=== PATIENT | female | born 1950 | race Hispanic/Latino ===

== ENCOUNTER 2017-05-19 13:22 | Emergency (ER) | payer MEDICARE ==
[2017-05-19 14:18] LABS: OCCULT BLOOD STOOL SINGLE ONLY NEGATIVE (NEGATIVE)
[2017-05-19] MEDS ORDERED: SODIUM CHLORIDE 0.9% 1000ML 1,000 ML IV ONE (14:43)
[2017-05-19 14:57] LABS: BASOPHILS % (AUTO) 0.6 % (0.0-5.0); EOSINOPHILS % (AUTO) 2.3 % (0.0-8.0); HEMATOCRIT 42.7 % (36-48); LYMPHOCYTES % (AUTO) 20.1 % (21.0-51.0); MEAN CORPUSCULAR HEMOGLOBIN 32.4 pg (27.0-33.0); MEAN CORPUSCULAR HGB CONC 36.1 g/dL (32.0-36.0); MEAN CORPUSCULAR VOLUME 89.9 fL (79-99); MONOCYTES % (AUTO) 15.9 % (3.0-13.0); NEUTROPHILS % (AUTO) 61.1 % (40.0-77.0); PLATELET COUNT (AUTO) 227 K/uL (130-400); RED BLOOD CELL COUNT(AUTO) 4.75 MIL/uL (4.00-5.50); RED CELL DISTRIBUTION WIDTH 12.8 % (11.0-15.5); WHITE BLOOD COUNT (AUTO) 5.4 K/uL (4.8-10.8)
[2017-05-19 15:10] LABS: CREATININE 0.8 mg/dL (0.5-1.5); POTASSIUM 4.2 mmol/L (3.5-5.1)
[2017-05-19 15:15] LABS: ALBUMIN 3.8 g/dL (3.5-5.0); BILIRUBIN,TOTAL 1.2 mg/dL (0.2-1.0); TOTAL PROTEIN, SERUM 7.8 g/dL (6.0-8.3)
[2017-05-19] MEDS ORDERED: ONDANSETRON HCL 4 MG/2 ML VIAL ONE (15:16)
[2017-05-19] MEDS ORDERED: ACETAMINOPHEN EXTRA STRENGTH 500 MG TABLET ONE (15:34)
[2017-05-19] MEDS ORDERED: FAMOTIDINE/PF 20 MG/2 ML VIAL IV ONE (15:35)
== END 2017-05-19 17:34 | disposition home or self-care (01) ==
LOC: EDH 13:22
DX: A08.4 Viral intestinal infection, unspecified (principal); E86.0 Dehydration; I10 Essential (primary) hypertension; K21.9 Gastro-esophageal reflux disease without esophagitis
CPT/HCPCS: 36415; 80053; 82270; 85025; 87046; 87177; 87205; 87324; 96361; 96374; 96375; 99284; J2405; J3490; J7030

== ENCOUNTER 2019-02-27 05:37 | Day surgery (SDC) | payer MEDICARE, OTHER ==
[~2019-02-27] VITALS: Ht 154.9 cm; Wt 76.7 kg
[~2019-02-27 05:37] MED LIST: AMLO5TAB9 PO; CYAN250014 PO; FAMO40TA75 PO; FLUT16H NASAL; LACT1CAP72 PO; LEVO100T12 PO; MV-M1TAB20 PO; NEBI10TA PO; PANT40TA25 PO
[2019-02-27] MEDS ORDERED: SODIUM CHLORIDE 0.9% 1000ML 1,000 ML IV ONE (05:47)
[2019-02-27 06:25] VITALS: BP 153/55
[2019-02-27] MEDS ORDERED: PROPOFOL 10 MG/ML 20ML VIAL IV ONE (06:40)
[2019-02-27] MEDS ORDERED: LIDOCAINE HCL 1% 20 ML VIAL ONE (06:41)
[2019-02-27 06:50] VITALS: BP 121/39
[2019-02-27 06:55] VITALS: BP 120/44
[2019-02-27 07:00] VITALS: BP 116/45
[2019-02-27 07:05] VITALS: BP 133/56
[2019-02-27 07:10] VITALS: BP 136/56
--- NOTE | 2019-02-27 07:18 | NUR ---
dc pt dc home via wc,no distressnoted , accompanied by spouse, dc instructions reinforced again , pt/ spouse verbalized understanding
== END 2019-02-27 07:18 | disposition home or self-care (01) ==
LOC: ENDO 05:37 → DAH 05:37 → ENDO 07:18
PROVIDERS: ATTEND Internal Medicine
DX: K21.9 Gastro-esophageal reflux disease without esophagitis (principal); K29.50 Unspecified chronic gastritis without bleeding; K44.9 Diaphragmatic hernia without obstruction or gangrene; K22.8 Other specified diseases of esophagus; E78.5 Hyperlipidemia, unspecified; E03.9 Hypothyroidism, unspecified; I10 Essential (primary) hypertension; Z79.899 Other long term (current) drug therapy; Z90.49 Acquired absence of other specified parts of digestive tract; Z90.710 Acquired absence of both cervix and uterus
CPT/HCPCS: 43239; 88305; J2704; J7030

== ENCOUNTER → 2022-01-26 | Outpatient (CLI) | payer MEDICARE ==
[~2022-01-26] MED LIST changes: +AMLO-257 PO; -AMLO5TAB9 PO; -LACT1CAP72 PO; +LACT1CAP81 PO; -PANT40TA25 PO; +PANT40TA54 PO
== END | disposition home or self-care (01) ==
LOC: SHCH 13:21
PROVIDERS: ATTEND Internal Medicine Cardiovascular Disease
DX: I10 Essential (primary) hypertension (principal); I25.10 Atherosclerotic heart disease of native coronary artery without angina pectoris
CPT/HCPCS: 93306

== ENCOUNTER 2024-09-27 04:07 | Emergency (ER) | payer OTHER, MEDICARE ==
[~2024-09-27] VITALS: Ht 157.5 cm; Wt 72.6 kg
[~2024-09-27 04:07] MED LIST changes: -NEBI10TA PO; +NEBI10TA10 PO
[2024-09-27] MEDS: hydrALAZine 20MG/ML VIAL IV ONE (04:34)
[2024-09-27 04:46] LABS: BASOPHILS # (AUTO) 0.08 K/uL (0.00-0.20); BASOPHILS % (AUTO) 0.8 % (0.0-5.0); EOSINOPHILS # (AUTO) 0.18 K/uL (0.00-0.70); EOSINOPHILS % (AUTO) 1.9 % (0.0-8.0); HEMATOCRIT 37.2 % (36-48); IMMATURE GRANULOCYTE ABSOLUTE 0.02 K/uL (0-1); LYMPHOCYTES # (AUTO) 2.9 K/uL (1.0-4.8); LYMPHOCYTES % (AUTO) 29.5 % (21.0-51.0); MEAN CORPUSCULAR HEMOGLOBIN 32.5 pg (27.0-33.0); MEAN CORPUSCULAR HGB CONC 36.6 g/dL (32.0-36.0); MEAN CORPUSCULAR VOLUME 88.8 fL (79-99); MONOCYTES # (AUTO) 1.2 K/uL (0.1-1.0); MONOCYTES % (AUTO) 11.9 % (3.0-13.0); NEUTROPHILS # (AUTO) 5.4 K/uL (1.8-7.7); NEUTROPHILS % (AUTO) 55.7 % (40.0-77.0); PLATELET COUNT (AUTO) 246 K/uL (130-400); RED BLOOD CELL COUNT(AUTO) 4.19 MIL/uL (4.00-5.50); RED CELL DISTRIBUTION WIDTH 12.5 % (11.0-15.5); WHITE BLOOD COUNT (AUTO) 9.7 K/uL (4.8-10.8)
--- NOTE | 2024-09-27 04:52 | ERN ---
ED Note History of Present Illness Stated Complaint: HTN Chief Complaint: Hypertension Time Seen by MD: 04:13 Dictation: This is a 74-year-old female who presented to the emergency room complaining of high blood pressure at home. She stated that she went to bed and as she woke up to use the restroom she felt very dizzy and her initial blood pressure was 195/88 with a subsequent reading systolics of more than 230s and began experiencing nausea and a slight headache she got concerned and came in for evaluation. She admits to compliance with her antihypertensives Bystolic and calcium channel mino. She reported some dizziness and nausea but no headache, blurred vision, diplopia, facial asymmetry, motor weakness or seizure activity. She used to take amlodipine 5 mg in the morning and Bystolic at night which was recently changed to both at bedtime with a new medication added for the daytime. She has a very poor sleep hygiene and sleeps very late. She also admitted to snoring. Temperature 97.1 pulse 87 respirations 18 blood pressure 212/75 with a pulse oximetry of 97% on room air Her chronic medical problems include hypertension and previous history of thyroid surgery Allergies: Coded Allergies: Iodine (Verified Allergy, 02/17/12) losartan potassium (Verified Allergy, 02/17/12) Home Meds Reported Medications Mv-Mn/Iron/FA/Herbal Cmplx#190 (Vitamin D3 Complete Caplet) 1 Each Tablet, 1 EACH PO DAILY, TAB 02/26/19 Famotidine (Pepcid) 40 Mg Tablet, 40 MG PO DAILY, TAB 02/26/19 Cyanocobalamin (Vitamin B-12) (Vitamin B12) 2,500 Mcg Tab.chew, 1000 MCG PO DAILY, TAB.CHEW 02/26/19 Pantoprazole Sodium (Pantoprazole Sodium) 40 Mg Tablet.dr, 40 MG PO DAILY, TAB 02/26/19 Fluticasone Propionate (Flonase Nasal [place]) 50 Mcg/[place] Ettrick, 50 MCG NASAL DAILY, SPRAY 02/26/19 Lactobacillus Combination No.4 (Probiotic) 1 Each Capsule, 1 EACH PO DAILY, CAP 02/26/19 Levothyroxine Sodium (Levothyroxine Sodium) 100 Mcg Tablet, 100 MCG PO DAILY, TAB 02/26/19 Nebivolol HCl (Bystolic) 10 Mg Tablet, 10 MG PO PM, TAB 10/10/19 Amlodipine Besylate (Amlodipine Besylate) 5 Mg Tablet, 5 MG PO DAILY, TAB 02/26/19 Past Medical History Past Medical History: Hypertension, Hypothyroid, Other Additional Past Medical Hx: THYROID Surgical History: Hysterectomy, Cholecystectomy, Other Surgical History Other: THYROID Family History: Negative Social History: Negative History: Not Applicable RN Note Reviewed/Agreed w/PFSH: Yes Review of System Dictation Constitutional: Negative for fever,chills, and weight loss Eyes: Negative for injury, pain,redness, and discharge ENT: Negative for injury,pain or swelling Cardiovascular: Negative for chest pain, palpitations, and edema Respiratory: Negative for shortness of breath, cough, and wheezing, Abdomen/GI: Negative for abdominal pain, nausea, vomiting, diarrhea, and constipation Back: Negative for injury and pain : Negative for injury, bleeding and discharge MS/Extremity: Negative for injury and deformity Skin: Negative for rash, and discoloration Neuro: Positive for headache, denies weakness, numbness, tingling, and seizure Psych: Negative for suicide ideation, homicidal ideation, and hallucinations Sleep history-sleeps only a few hours with marked interruptions and poorly consolidated sleep. Admits to snoring. Initial Vital Sign VS Vital Signs Date Time Temp Pulse Resp B/P (MAP) Pulse Ox O2 Delivery O2 Flow Rate FiO2 09/27/24 04:09 97.2 87 18 212/75 97 Room Air 09/27/24 04:30 0 21 Physical Exam Dictation General: awake, alert, NAD Head/Face: Normocephalic, atraumatic Mallampati-4. Eyes: PERRL, EOMI, vision at baseline ENT: oral cavity clear, TMs clear, no signs of infection Neck: Trachea midline, supple, no nuchal rigidity Cardiovascular: RRR, normal S1/S2, No MRGs, no JVD Respiratory: CTAB, no respiratory distress, No rales or wheezes Abdomen: Soft, non-tender, non-distended, normal bowel sounds, no guarding or rebound. Skin: Warm, dry, normal turgor, no rash MS/Extremity: Pulses equal, no cyanosis, neurovascular intact, FROM Neuro: COAx4, GCS 15, strength 5/5, CN 2-12 intact, normal cerebellar exam, normal gait, Psych: Normal behavior, mood, and affect normal Extremities-trace edema without any palpable cords, Homans sign is negative Results (Laboratory/Radiology) Laboratory/Radiology Laboratory Tests Test 09/27/24 04:03 White Blood Count 9.7 K/uL (4.8-10.8) Red Blood Count 4.19 MIL/uL (4.00-5.50) Hemoglobin 13.6 g/dL (12.0-16.0) Hematocrit 37.2 % (36-48) Mean Corpuscular Volume 88.8 fL (79-99) Mean Corpuscular Hemoglobin 32.5 pg (27.0-33.0) Mean Corpuscular Hemoglobin Concent 36.6 g/dL (32.0-36.0) H Red Cell Distribution Width 12.5 % (11.0-15.5) Platelet Count 246 K/uL (130-400) Mean Platelet Volume 11.1 fL (7.5-10.5) H Immature Granulocyte % (Auto) 0.2 % (0-1) Neutrophils (%) (Auto) 55.7 % (40.0-77.0) Lymphocytes (%) (Auto) 29.5 % (21.0-51.0) Monocytes (%) (Auto) 11.9 % (3.0-13.0) Eosinophils (%) (Auto) 1.9 % (0.0-8.0) Basophils (%) (Auto) 0.8 % (0.0-5.0) Neutrophils # (Auto) 5.4 K/uL (1.8-7.7) Lymphocytes # (Auto) 2.9 K/uL (1.0-4.8) Monocytes # (Auto) 1.2 K/uL (0.1-1.0) H Eosinophils # (Auto) 0.18 K/uL (0.00-0.70) Basophils # (Auto) 0.08 K/uL (0.00-0.20) Absolute Immature Granulocyte (auto 0.02 K/uL (0-1) Nucleated Red Blood Cells 0.0 % (0.0-0.19) Red Blood Cell Morphology See comments Sodium Level 141 mmol/L (136-145) Potassium Level 3.9 mmol/L (3.5-5.1) Chloride Level 107 mmol/L (101-111) Carbon Dioxide Level 25 mmol/L (21-32) Blood Urea Nitrogen 14 mg/dL (7-18) Creatinine 0.9 mg/dL (0.5-1.0) Glomerular Filtration Rate Calc 67 mL/min (>90) Random Glucose 105 mg/dL (70-105) Total Calcium 9.9 mg/dL (8.5-10.1) Total Creatine Kinase 160 U/L (21-232) Troponin I High Sensitivity 4.3 ng/L (4-50) Labs Reviewed?: Yes EKG Comment: Twelve lead EKG done on 09/27/2024 at 4:15 a.m. showed a heart rate of 77, MT interval 176, QRS 82, QT/QTC 393/445 Impression normal sinus rhythm with artifactual recording in the lateral leads. Nonspecific changes with a evidence of Q-waves in the inferior leads 3 and AVF. Also Q-waves noted in V1 V2. No acute STT wave elevations noted EKG rhythm strip-normal sinus rhythm with nonspecific changes but no acute STT wave elevations noted. Interpreted by ER MD Dr. Peralta X-RAY Comment: Chest x-ray interpretation by me mild cardiomegaly chronic interstitial changes bilaterally. ED Course ED Course Orders Procedure Category Date Status Time 12 Lead Ekg Tracing- EKG 09/27/24 Logged Technical 04:23 Cardiac Panel LAB 09/27/24 Complete 04:24 Cbc With Differential LAB 09/27/24 Complete 04:24 Basic Metabolic Panel LAB 09/27/24 Complete 04:24 Urinalysis Profile LAB 09/27/24 Logged 04:24 Chest 1vw RAD 09/27/24 Taken 04:24 Hydralazine 20mg Inj PHA 09/27/24 Complete (Apresoline 20mg In 04:30 Current Medications Medications (Trade) Dose Ordered Sig/Elinor Route PRN Reason Start Time Stop Time Status Last Admin Dose Admin Hydralazine HCl (APRESOLine 20MG INJ) 10 mg ONCE ONCE IV 09/27/24 04:30 09/27/24 04:31 DC 09/27/24 04:34 Vital Signs Date Time Temp Pulse Resp B/P (MAP) Pulse Ox O2 Delivery O2 Flow Rate FiO2 09/27/24 04:58 98.4 88 18 150/60 99 Room Air* 0 21 09/27/24 04:30 98.4 83 18 186/85 99 Room Air* 0 21 09/27/24 04:09 97.2 87 18 212/75 97 Room Air We will perform diagnostic labs, advanced imaging and administer medications according to the patient's complaint. Once the results are available, will review and personally interpreted the labs to rule out any acute life- threatening emergency the trach require immediate intervention and treatment. I will then re-evaluate the patient after treatment and diagnostic exams have return to determine whether the patient requires any further testing, can safely be discharged home or need further admission to hospital for additional treatment and evaluation. Labs reviewed CBC BNP 7 with a normal limits troponins are negative EKGs unremarkable for any acute changes Chest x-ray shows chronic scarring in perihilar prominence and also probable hiatal hernia. Her blood pressure improved significantly to 144 over 53. I had a long discussion at bedside with her and her and educated her on poorly controlled hypertension and the consequences and complications morbidity associated with it. She indicated that most of her blood pressure readings have been in the 150s and 160 systolic. I explained to her the reasons for poorly controlled hypertension which are simple once like increased dietary sodium, progressive atherosclerosis and her thyroid dysfunction. The other most important component is poor sleep hygiene and an undetected sleep disorder. I recommended that she should give a trial of non benzodiazepine sleep aid to reestablish her sleep-wake cycle and also request a sleep study when she sees her PCP Have discussed the risks benefits adverse effects of Lunesta and she verbalized full understanding Medical Decision Making MDM MDM: Differential diagnosis: Uncontrolled hypertension, accelerated hypertension, hypertensive crisis, hypertensive urgency, hypertensive emergency Rationale: Tests considered and ordered secondary to shared decision making include: Previous outside records reviewed: Old ER visits. Risk of complication and/or morbidity or mortality of patient management: None Medications-Per medication reconciliation Need for hospitalization: Patient does not meet criteria for hospitalization. Need for emergency major/minor surgery: No There are no social concerns with this patient. Prescription drug management Prescriptions will include symptomatic care Patient's prior external medical records from other ER visits were reviewed by me as indicated. Prior testing and results from previous visits were reviewed. Prior tests were taken into account with medical decision making and resource utilization, independent historian/historians were used to obtain complete medical history. I independently interpreted the test that were performed, results were reviewed by me and considered findings on radiology if ordered. Medical management and examination interpretation discussions were had by me with other qualified healthcare professionals as indicated for the patient's care. Problem List Problem List: (1) Uncontrolled hypertension (2) Insomnia (3) Sleep disorder breathing DX & DISP Disposition: Discharge Departure Impression: Primary Impression: Uncontrolled hypertension Additional Impressions: Dizziness, Insomnia, Sleep disorder breathing Condition: Stable Scripts Eszopiclone (Lunesta) 2 Mg Tablet 2 MG PO daily at bed time, #15 TAB Prov: PEREZ PERALTA MD 09/27/24 Additional Instructions: Patient and the caregiver have been informed of all the diagnostic tests and the imaging conducted during the today's visit to the emergency room and has verbalized understanding of the results I have personally reviewed and interpreted all diagnostic exams performed here in the ER today as well as the vital signs documented by the nursing staff. The patient is now being discharged to home and should follow up with the primary care physician or the specialist as directed by the ER staff. Follow-up with primary care provider in 1 to 2 days. Take medications as directed here in the emergency room. Okay to continue home medications unless otherwise discussed during your visit in the emergency room today. Return to your nearest emergency room if symptoms worsen or if there is no improvement. Call 911 if you need immediate assistance. Take Tylenol or Motrin [id number] as needed and if no contraindications are present. Increase oral hydration. A wound culture or urine culture was ordered here in the emerge ncy room department please follow-up with primary care provider and advise them to get repeat ports from our facility. If you had any Jan wrap/splints that were applied here, please do not remove them until you see your primary care or specialty. Patient will follow up with PCP Dr. Ding Referrals: MELANIE DING MD (PCP) PEREZ PERALTA MD September 27, 2024 04:52
[2024-09-27 04:55] LABS: CREATININE 0.9 mg/dL (0.5-1.0); POTASSIUM 3.9 mmol/L (3.5-5.1)
[2024-09-27] MEDS ORDERED: ESZO2TAB56 PO (05:52)
[2024-09-27 06:04] VITALS: BP 159/53; PULSE 84; RESP 18; TEMP 98.4; O2SAT 98
--- NOTE | 2024-09-27 08:20 | HMCIMG ---
Exam Type: CHEST 1VW Clinical Information: hypertensive crisis Comparison: None Findings: The lungs are clear of infiltrates. The heart is normal in size. The bony and soft tissue structures of the chest are unremarkable. Large hiatal hernia projects behind the cardiac silhouette. Impression: Clear lungs.
--- NOTE | 2024-09-27 15:34 | EKG ---
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
== END 2024-09-27 06:23 | disposition home or self-care (01) ==
LOC: EDH 04:07
DX: I10 Essential (primary) hypertension (principal); R42 Dizziness and giddiness; G47.00 Insomnia, unspecified; G47.9 Sleep disorder, unspecified; E03.9 Hypothyroidism, unspecified; Z79.890 Hormone replacement therapy; Z79.899 Other long term (current) drug therapy; Z88.8 Allergy status to other drugs, medicaments and biological substances; Z90.49 Acquired absence of other specified parts of digestive tract; Z90.710 Acquired absence of both cervix and uterus; Z91.041 Radiographic dye allergy status
CPT/HCPCS: 99283; 96374; 71045; 82550; 84484; 80048; 85025; 36415; 93005; J0360

== ENCOUNTER 2024-12-21 04:40 | Emergency (ER) | payer OTHER, MEDICARE ==
[~2024-12-21] VITALS: Ht 157.5 cm; Wt 81.6 kg
[~2024-12-21 04:40] MED LIST changes: +ESZO2TAB56 PO
--- NOTE | 2024-12-21 05:28 | EKG ---
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
[2024-12-21 06:32] LABS: IMMATURE GRANULOCYTE ABSOLUTE 0.04 K/uL (0-1); NUCLEATED RED BLOOD CELLS 0.0 % (0.0-0.19); PLATELET COUNT (AUTO) 215 K/uL (130-400); RED BLOOD CELL COUNT(AUTO) 4.27 MIL/uL (4.00-5.50); RED CELL DISTRIBUTION WIDTH 12.5 % (11.0-15.5); WHITE BLOOD COUNT (AUTO) 7.8 K/uL (4.8-10.8)
--- NOTE | 2024-12-21 06:33 | ERN ---
General Chief Complaint: Hypertension Stated Complaint: HTN Time Seen by MD: 04:47 Source: patient History of Present Illness Initial Comments 74-year-old female with hypertension. Woke up early this morning with diaphoresis and measured her blood pressure and it was 200 systolic. She comes to the emergency room for further evaluation. Allergies: Coded Allergies: Iodine (Verified Allergy, 02/17/12) losartan potassium (Verified Allergy, 02/17/12) Home Meds Active Scripts Eszopiclone (Lunesta) 2 Mg Tablet, 2 MG PO daily at bed time, #15 TAB Prov:PEREZ PERALTA MD 09/27/24 Reported Medications Mv-Mn/Iron/FA/Herbal Cmplx#190 (Vitamin D3 Complete Caplet) 1 Each Tablet, 1 EACH PO DAILY, TAB 02/26/19 Famotidine (Pepcid) 40 Mg Tablet, 40 MG PO DAILY, TAB 02/26/19 Cyanocobalamin (Vitamin B-12) (Vitamin B12) 2,500 Mcg Tab.chew, 1000 MCG PO DAILY, TAB.CHEW 02/26/19 Pantoprazole Sodium (Pantoprazole Sodium) 40 Mg Tablet.dr, 40 MG PO DAILY, TAB 02/26/19 Fluticasone Propionate (Flonase Nasal [place]) 50 Mcg/[place] Laura, 50 MCG NASAL DAILY, SPRAY 02/26/19 Lactobacillus Combination No.4 (Probiotic) 1 Each Capsule, 1 EACH PO DAILY, CAP 02/26/19 Levothyroxine Sodium (Levothyroxine Sodium) 100 Mcg Tablet, 100 MCG PO DAILY, TAB 02/26/19 Nebivolol HCl (Bystolic) 10 Mg Tablet, 10 MG PO PM, TAB 02/26/19 Amlodipine Besylate (Amlodipine Besylate) 5 Mg Tablet, 5 MG PO DAILY, TAB 02/26/19 Past Medical History Past Medical History: Hypertension, Other Medical History Other: THYROID PROBLEM Past Surgical History: Appendectomy, Hysterectomy, Other Surgical History Other: THYRODECTOMY Family History Family History: Negative Social History Social History: Negative Female( History) History: Not Applicable Constitutional: (-) chills, (-) diaphoresis, (-) fever, (-) malaise, (-) weakness, (-) other documentation EENTM: (-) eye pain, (-) blurred vision, (-) tearing, (-) double vision, (-) ear pain, (-) ear discharge, (-) nose pain, (-) nose congestion, (-) throat pain, (-) Throat swelling, (-) mouth pain, (-) tooth pain, (-) mouth swelling, (-) other documentation Cardiovascular: (-) chest pain, (-) edema, (-) palpitations, (-) syncope, (-) dyspnea on exertion, (-) other documentation Gastrointestinal/Abdominal: (-) nausea, (-) vomiting, (-) diarrhea, (-) abdominal pain, (-) abdominal distention, (-) constipation, (-) rectal bleeding, (-) dark stool/melena, (-) other documentation Genitourinary: (-) vaginal discharge, (-) vaginal bleeding, (-) dysuria, (-) frequency, (-) hematuria, (-) pain, (-) other documentation Musculoskeletal: (-) Neck pain, (-) back pain, (-) Flank Pain, (-) joint pain, (-) joint swelling, (-) muscle pain, (-) muscle stiffness, (-) gout, (-) other documentation Physical Exam General Appearance: (+) no apparent distress Orientation: (+) alert, (+) oriented x 3 Head/Face Trauma: No Eye: bilateral eye normal inspection, bilateral eye PERRL, bilateral eye EOMI Ear, Nose, Throat: (+) hearing grossly normal, (+) normal ENT inspection, (+) moist mucous membraine Neck: (+) normal inspection, (+) supple, (+) full range of motion Respiratory: (+) chest non-tender, (+) lungs clear Heart: (+) regular, (+) no gallop Vascular: (+) no edema Results Laboratory and Microbiology Lab and Micro Result Laboratory Tests Test 12/21/24 05:38 12/21/24 06:39 White Blood Count 7.8 K/uL (4.8-10.8) Red Blood Count 4.27 MIL/uL (4.00-5.50) Hemoglobin 13.6 g/dL (12.0-16.0) Hematocrit 38.7 % (36-48) Mean Corpuscular Volume 90.6 fL (79-99) Mean Corpuscular Hemoglobin 31.9 pg (27.0-33.0) Mean Corpuscular Hemoglobin Concent 35.1 g/dL (32.0-36.0) Red Cell Distribution Width 12.5 % (11.0-15.5) Platelet Count 215 K/uL (130-400) Mean Platelet Volume 11.0 fL (7.5-10.5) H Immature Granulocyte % (Auto) 0.5 % (0-1) Neutrophils (%) (Auto) 80.1 % (40.0-77.0) H Lymphocytes (%) (Auto) 15.1 % (21.0-51.0) L Monocytes (%) (Auto) 4.0 % (3.0-13.0) Eosinophils (%) (Auto) 0.0 % (0.0-8.0) Basophils (%) (Auto) 0.3 % (0.0-5.0) Neutrophils # (Auto) 6.3 K/uL (1.8-7.7) Lymphocytes # (Auto) 1.2 K/uL (1.0-4.8) Monocytes # (Auto) 0.3 K/uL (0.1-1.0) Eosinophils # (Auto) 0.00 K/uL (0.00-0.70) Basophils # (Auto) 0.02 K/uL (0.00-0.20) Absolute Immature Granulocyte (auto 0.04 K/uL (0-1) Nucleated Red Blood Cells 0.0 % (0.0-0.19) Prothrombin Time 10.3 SEC (9.6-11.6) Prothromb Time International Ratio 0.97 (0.85-1.15) Activated Partial Thromboplast Time 29.5 SEC (26.3-35.5) Sodium Level 137 mmol/L (136-145) Potassium Level 3.9 mmol/L (3.5-5.1) Chloride Level 101 mmol/L (101-111) Carbon Dioxide Level 27 mmol/L (21-32) Blood Urea Nitrogen 17 mg/dL (7-18) Creatinine 0.8 mg/dL (0.5-1.0) Glomerular Filtration Rate Calc 77 mL/min (>90) Random Glucose 174 mg/dL (70-105) H Total Calcium 9.5 mg/dL (8.5-10.1) Total Creatine Kinase 158 U/L (21-232) Troponin I High Sensitivity 6 ng/L (4-50) Urine Color COLORLESS (YELLOW) Urine Appearance CLEAR (CLEAR) Urine pH 7.0 (5.0-8.0) Urine Specific [place] 1.006 (1.001-1.031) Urine Protein NEGATIVE mg/dL (NEGATIVE) Urine Glucose (UA) NEGATIVE mg/dL (NEGATIVE) Urine Ketones NEGATIVE mg/dL (NEGATIVE) Urine Occult Blood NEGATIVE (NEGATIVE) Urine Nitrate NEGATIVE (NEGATIVE) Urine Bilirubin NEGATIVE mg/dL (NEGATIVE) Urine Urobilinogen 0.2 mg/dL (0.2-1.0) Urine Leukocyte Esterase 250 Duong/uL (NEGATIVE) H Urine RBC 0-1 /HPF (0-1) Urine WBC 11-25 /HPF (0-1) H Urine Squamous Epithelial Cells RARE /HPF (0-2) Urine Non-Squamous Epithelial Cells <1 /HPF (0-2) Urine Bacteria RARE /HPF (None Seen) MDM MDM: Differential diagnosis: Acute [place]. steroids for allergies. Hypovolemia. Dyspepsia. Sleep apnea. Rationale: Tests considered and ordered secondary to shared decision making include: Previous outside records reviewed: Old ER visits. Risk of complication and/or morbidity or mortality of patient management: None Medications-Per medication reconciliation Need for hospitalization: Patient does meet criteria for hospitalization. Need for emergency major/minor surgery: No There are no social concerns with this patient. Prescription drug management Prescriptions will include symptomatic care Patient's prior external medical records from other ER visits were reviewed by me as indicated. Prior testing and results from previous visits were reviewed. Prior tests were taken into account with medical decision making and resource utilization, independent historian/historians were used to obtain complete medical history. I independently interpreted the test that were performed, results were reviewed by me and considered findings on radiology if ordered. HTN improved, UTI tx, nontoxic, VSS, NAD, no WBC or fever, wants to go home, Rx given ED Course Orders Procedure Category Date Status Time Vital Signs Per CPOE 12/21/24 Transmitted Routine 05:11 Prothrombin Time With LAB 12/21/24 Complete INR 05:11 Partial LAB 12/21/24 Complete Thromboplastin Time 05:11 Chest 1vw RAD 12/21/24 Taken 05:11 12 Lead Ekg Tracing- EKG 12/21/24 Complete Technical 05:11 Oxygen By Nc/Pulse Ox CPOE 12/21/24 Transmitted 05:11 Maintain Iv CPOE 12/21/24 Transmitted 05:11 Iv Insertion CPOE 12/21/24 Transmitted 05:11 Cardiac Monitoring CPOE 12/21/24 Transmitted 05:11 Pulse Oximetry With CPOE 12/21/24 Transmitted Vs And Prn 05:11 Cbc With Differential LAB 12/21/24 Complete 05:11 Activity: Br W/Brp CPOE 12/21/24 Transmitted With Assist 05:11 Creatine Kinase, Total LAB 12/21/24 Complete 05:11 Troponin I High LAB 12/21/24 Complete Sensitivity 05:11 Urinalysis Profile LAB 12/21/24 Complete 05:11 Basic Metabolic Panel LAB 12/21/24 Complete 05:11 Culture Urine LULU 12/21/24 In Process 07:19 Ceftriaxone 2gm Vial PHA 12/21/24 Complete (Rocephin 2gm Inj) 08:30 Hydralazine 20mg Inj PHA 12/21/24 Complete (Apresoline 20mg In 08:30 Current Medications Medications (Trade) Dose Ordered Sig/Elinor Route PRN Reason Start Time Stop Time Status Last Admin Dose Admin Ceftriaxone Sodium (Rocephin 2gm Inj) 2 gm ONCE ONCE IVPB 12/21/24 08:30 12/21/24 08:31 DC 12/21/24 08:50 Hydralazine HCl (APRESOLine 20MG INJ) 10 mg ONCE ONCE IV 12/21/24 08:30 12/21/24 08:32 DC 12/21/24 08:50 Vital Signs Date Time Temp Pulse Resp B/P (MAP) Pulse Ox O2 Delivery O2 Flow Rate FiO2 12/21/24 09:03 65 14 181/61 97 Room Air* 0 12/21/24 07:04 58 18 164/64 98 Room Air* 0 12/21/24 06:45 54 18 190/64 96 Room Air* 0 12/21/24 05:18 98.2 97 18 187/65 98 Room Air* 0 12/21/24 05:13 98.2 97 18 202/84 97 Room Air 0 DX & DISP Disposition: Discharge Departure Impression: Primary Impression: HTN (hypertension) Additional Impression: Acute UTI Condition: Stable Scripts Cephalexin Monohydrate (Keflex) 500 Mg Cap 1 CAP PO BID for 5 Days, #10 CAP 0 Refills Prov: ROSALVA BRANTLEY MD 12/21/24 Referrals: MELANIE DING MD (PCP) PAT KNIGHT MD Dec 21, 2024 06:33 ROSALVA BRANTLEY MD Dec 21, 2024 09:50
[2024-12-21 06:39] LABS: INR 0.97 (0.85-1.15)
[2024-12-21 06:46] LABS: CREATINE KINASE, TOTAL 158.0 U/L (21-232); CREATININE 0.8 mg/dL (0.5-1.0); GLOMERULAR FILTR. RATE CALC 77.0 mL/min (>90); GLUCOSE,RANDOM 174.0 mg/dL (70-105); SODIUM SERUM 137.0 mmol/L (136-145); UREA NITROGEN, BLOOD 17.0 mg/dL (7-18)
[2024-12-21 07:17] LABS: APPEARANCE,URINE CLEAR (CLEAR); GLUCOSE, URINE (UA) NEGATIVE (NEGATIVE); LEUKOCYTE ESTERASE ,URINE 250 Leu/uL (NEGATIVE); NITRATE,URINE NEGATIVE (NEGATIVE); OCCULT BLOOD,URINE NEGATIVE (NEGATIVE)
[2024-12-21 07:19] LABS: ADD UA MICROSCOPIC YES
[2024-12-21 07:36] LABS: NON-SQUAMOUS EPITHELIAL CELL <1 /HPF (0-2); SQUAMOUS EPITHELIAL CELL,UR RARE /HPF (0-2)
[2024-12-21 09:48] VITALS: BP 133/50; PULSE 61; RESP 15; TEMP 98.2; O2SAT 98
[2024-12-21] MEDS ORDERED: CEPH500B PO (09:50)
--- NOTE | 2024-12-21 14:19 | HMCIMG ---
EXAM: XR Chest, 1 View. CLINICAL HISTORY: 74-year-old female, chest pain. COMPARISON: 09/27/2024 4:34 FINDINGS: LUNGS: Trace infiltrate right lower lobe, question early pneumonia. PLEURAL SPACES: No pleural effusion or pneumothorax. HEART: The heart size is normal. BONES: No acute osseous abnormality. VASCULATURE: Atherosclerotic aorta. SOFT TISSUES: Small hiatal hernia. IMPRESSION: 1. Trace infiltrate in the right lower lobe, question early pneumonia, new compared to prior XR 09/27/2024 4:34. /[place]
== END 2024-12-21 09:59 | disposition home or self-care (01) ==
LOC: EDH 04:40
DX: I10 Essential (primary) hypertension (principal); N39.0 Urinary tract infection, site not specified; Z79.890 Hormone replacement therapy; Z79.899 Other long term (current) drug therapy; Z88.8 Allergy status to other drugs, medicaments and biological substances; Z90.49 Acquired absence of other specified parts of digestive tract; Z90.710 Acquired absence of both cervix and uterus
CPT/HCPCS: 99284; 96365; 71045; 96375; 82550; 84484; 80048; 85025; 85610; 85730; 87086; 81001; 36415; 93005; J0696; J0360

== ENCOUNTER 2024-12-24 17:05 | Emergency (ER) | payer OTHER, MEDICARE ==
[~2024-12-24] VITALS: Ht 492.8 cm; Wt 77.1 kg
[~2024-12-24 17:05] MED LIST changes: +CEPH500B PO
[2024-12-24 17:44] LABS: IMMATURE GRANULOCYTE ABSOLUTE 0.04 K/uL (0-1); NUCLEATED RED BLOOD CELLS 0.0 % (0.0-0.19); PLATELET COUNT (AUTO) 295 K/uL (130-400); RED BLOOD CELL COUNT(AUTO) 4.43 MIL/uL (4.00-5.50); RED CELL DISTRIBUTION WIDTH 12.0 % (11.0-15.5); WHITE BLOOD COUNT (AUTO) 11.1 K/uL (4.8-10.8)
[2024-12-24 17:56] LABS: CREATININE 1.3 mg/dL (0.5-1.0); GLOMERULAR FILTR. RATE CALC 43.0 mL/min (>90); GLUCOSE,RANDOM 140.0 mg/dL (70-105); SODIUM SERUM 135.0 mmol/L (136-145); UREA NITROGEN, BLOOD 24.0 mg/dL (7-18)
[2024-12-24 18:06] LABS: ASPARTATE AMINOTRANSFERASE 30.0 U/L (10-37); TOTAL PROTEIN, SERUM 7.4 g/dL (6.0-8.3)
[2024-12-24 19:50] LABS: APPEARANCE,URINE CLOUDY (CLEAR); GLUCOSE, URINE (UA) NEGATIVE (NEGATIVE); LEUKOCYTE ESTERASE ,URINE 500 Leu/uL (NEGATIVE); NITRATE,URINE NEGATIVE (NEGATIVE); OCCULT BLOOD,URINE NEGATIVE (NEGATIVE)
[2024-12-24 19:51] LABS: ADD UA MICROSCOPIC YES
[2024-12-24 19:52] LABS: OTHER CASTS, URINE 7 /LPF (None Seen); SQUAMOUS EPITHELIAL CELL,UR MOD /HPF (0-2)
--- NOTE | 2024-12-24 20:00 | NUR ---
DR KNIGHT DISCUSSING PT INFO W/ PT
[2024-12-24] MEDS: ASPIRIN 81MG CHEW TAB PO ONE (20:34)
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
--- NOTE | 2024-12-24 20:47 | EKG ---
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
[2024-12-24] MEDS: LACTATED RINGERS 1000ML IV STA (20:50)
--- NOTE | 2024-12-24 21:08 | HMCIMG ---
EXAM: CT of the brain without contrast HISTORY: TIA TECHNIQUE: Multiple axial CT slices through brain without contrast. Coronal and sagittal reconstructions were performed. CT scans are performed using one of these three dose reduction techniques: automated exposure control, adjustment of the mA and/or kV according to patient size, or use of iterative reconstruction techniques. COMPARISON: None FINDINGS: No acute infarct, hemorrhage or mass. No extra axial fluid collections. No midline shift or mass effect. Mild brain atrophy. Basal cisterns are intact. No suspicious osseous lesions. Sinuses and mastoid air cells are clear. IMPRESSION: No acute intracranial abnormalities seen. /[place]
[2024-12-24 22:11] VITALS: BP 128/66; PULSE 78; RESP 18; TEMP 97; O2SAT 96
[2024-12-24] MEDS ORDERED: NITR100C4 PO (22:23)
--- NOTE | 2024-12-24 22:46 | HMCIMG ---
EXAM: Ultrasound Duplex Evaluation of Bilateral Carotid and Vertebral Arteries. CLINICAL HISTORY: Rule out transient ischemic attack (TIA). TECHNIQUE: Real-time gillespie-scale and colour Doppler ultrasound of the bilateral carotid and vertebral arteries, with spectral waveform analysis. COMPARISON: None provided. FINDINGS: RIGHT COMMON CAROTID ARTERY (CCA): Peak systolic velocity (PSV) 79 cm/s. No occlusion or significant stenosis. RIGHT INTERNAL CAROTID ARTERY (ICA): PSV 71 cm/s, ICA/CCA ratio 0.9. No occlusion or significant stenosis. RIGHT EXTERNAL CAROTID ARTERY (ECA): PSV 108 cm/s. No occlusion or significant stenosis. RIGHT VERTEBRAL ARTERY: Antegrade flow, velocity 42 cm/s, with a mildly high resistance waveform. LEFT COMMON CAROTID ARTERY (CCA): PSV 68 cm/s. No occlusion or significant stenosis. LEFT INTERNAL CAROTID ARTERY (ICA): PSV 75 cm/s, ICA/CCA ratio 1.1. No occlusion or significant stenosis. LEFT EXTERNAL CAROTID ARTERY (ECA): PSV 87 cm/s. No occlusion or significant stenosis. LEFT VERTEBRAL ARTERY: Antegrade flow, velocity 60 cm/s. PLAQUE CHARACTERISTICS: Calcified plaque was identified in the bilateral carotid arteries. SOFT TISSUES: No incidental abnormalities detected. IMPRESSION: No evidence of hemodynamically significant stenosis in the bilateral carotid or vertebral arteries by NASCET criteria. /[place]
== END 2024-12-24 22:28 | disposition home or self-care (01) ==
LOC: EDH 17:05
DX: R55 Syncope and collapse (principal); I10 Essential (primary) hypertension; Z79.890 Hormone replacement therapy; Z79.899 Other long term (current) drug therapy; Z88.8 Allergy status to other drugs, medicaments and biological substances; Z90.49 Acquired absence of other specified parts of digestive tract; Z90.710 Acquired absence of both cervix and uterus
CPT/HCPCS: 99284; 93880; 96360; 70450; 80076; 84484; 80048; 83690; 85025; 81001; 36415; 93005; J7120; J2405